=== PATIENT | male | born 1950 | race Caucasian/White ===

== ENCOUNTER → 2016-08-04 | Outpatient (CLI) | payer OTHER ==
[~2016-08-04] MED LIST: BACT2OIN TOPICAL; BENA25CA2 PO; PLAV75TA29 PO; PRED20 PO
--- NOTE | 2016-08-04 14:26 | EKG ---
Date Performed: 08/04/2016 Time Performed: 09:43:54 PTAGE: 66 years EKG: Normal Sinus rhythm . Minor nonspecific IVCD with secondary ST-T wave changes The ST T wave changes seen are new since pr ior tracing Clinical correlation is needed Abnormal ECG PREVIOUS TRACING : 04/03/2007 17.01 DOCTOR: Benson Bynum Interpretating Date/Time 08/04/2016 14:26:24
== END ==
LOC: HCAV 09:23
PROVIDERS: ATTEND Orthopaedic Surgery Sports Medicine
DX: Z01.810 Encounter for preprocedural cardiovascular examination (principal); M75.121 Complete rotator cuff tear or rupture of right shoulder, not specified as traumatic
CPT/HCPCS: 93005